=== PATIENT | male | born 1950 | race Caucasian/White ===

== ENCOUNTER 2021-09-15 20:29 | Inpatient (IN) | payer MEDICARE, BC ==
[~2021-09-15] VITALS: Ht 175.3 cm; Wt 68.0 kg
[2021-09-15] MEDS ORDERED: BUME2TAB7 PO (22:56)
[2021-09-15] MEDS ORDERED: METO-357 PO (22:56)
[2021-09-15] MEDS ORDERED: FINA5TAB11 PO (22:56)
[2021-09-15] MEDS ORDERED: DAPA10TA PO (22:56)
[2021-09-15] MEDS ORDERED: SACU1TAB7 PO (22:56)
[2021-09-15] MEDS ORDERED: TAMS-3 PO (22:56)
[2021-09-15] MEDS ORDERED: DEXAMETHASONE SOD PHOSPHATE 4 MG INJ IV ONE (23:30)
[2021-09-15] MEDS ORDERED: AZITHROMYCIN 250 MG TABLET PO ONE (23:30)
[2021-09-15] MEDS ORDERED: CEFTRIAXONE 1 G in IV DEXTROSE 5% 50 ML IV ONE (23:30)
[2021-09-15 23:45] LABS: HEMATOCRIT 45.2 % (36.7-47.1); MEAN CORPUSCULAR HEMOGLOBIN 30.8 uug (23.8-33.4); MEAN CORPUSCULAR VOLUME 89.7 fL (73.0-96.2); PLATELET COUNT (AUTO) 105 K/uL (152-348)
[2021-09-15 23:49] LABS: CARBON DIOXIDE 26 mmol/L (21-32); CHLORIDE 96 mmol/L (98-107); CREATININE 1.7 mg/dL (0.6-1.3); GLUCOSE 183 mg/dL (74-106); POTASSIUM 4.4 mmol/L (3.5-5.1); UREA NITROGEN, BLOOD 30 mg/dL (7-18)
[2021-09-16 00:03] LABS: ALANINE AMINOTRANSFERASE 26 U/L (16-63); ALKALINE PHOSPHATASE 114 U/L (50-136); ASPARTATE AMINOTRANSFERASE 36 U/L (15-37); BILIRUBIN,DIRECT 0.4 mg/dL (0.0-0.2); BILIRUBIN,TOTAL 1.3 mg/dL (0.2-1.0); TOTAL PROTEIN, SERUM 6.8 g/dL (6.4-8.2)
[2021-09-16] MEDS ORDERED: CEFTRIAXONE /D5W 50ML IVPB **ER PYXIS IV ONE (00:08)
[2021-09-16] MEDS ORDERED: DEXAMETHASONE SOD PHOSPHATE 10 MG INJ ONE (00:08)
[2021-09-16] MEDS ORDERED: AZITHROMYCIN 250 MG TABLET ONE (00:08)
[2021-09-16 00:24] LABS: *BILIRUBIN,URIN NEGATIVE (NEGATIVE); *BLOOD, URINE NEGATIVE (NEGATIVE); *CLARITY,URINE CLEAR (CLEAR); *COLOR,URINE YELLOW (YELLOW); *KETONES,URINE NEGATIVE (NEGATIVE); *UROBILINOGEN,URINE 0.2 E.U./dl (NORMAL); LEUKOCYTE ESTERASE ,URINE NEGATIVE (NEGATIVE); NITRITE, URINE NEGATIVE (NEGATIVE); PH,URINE 5.5 (5.0-8.0); UGLUCOSE NEGATIVE (NEGATIVE)
[2021-09-16 02:10] LABS: BACTERIA,URINE NONE SEEN /HPF (NONE SEEN); RBC,URINE NONE SEEN /HPF (0-3); SQUAMOUS EPITHELIAL CELL,UR FEW /HPF (NONE SEEN); WBC,URINE 0-3 /HPF (0-3)
--- NOTE | 2021-09-16 03:04 | NUR ---
Dr Banks speaking with Dr Del Cid control panel builder for [facility] who accept patient.
[2021-09-16] MEDS ORDERED: ENOXAPARIN SODIUM 40 MG/0.4 ML DISP.SYRIN SQ ONE ×2 (03:15→04:18)
[2021-09-16] MEDS ORDERED: FUROSEMIDE 40 MG/4 ML VIAL IV SCH (03:15)
[2021-09-16] MEDS ORDERED: ACETAMINOPHEN 325 MG TABLET PO PRN (03:15)
[2021-09-16] MEDS ORDERED: MAGNESIUM HYDROXIDE 30 ML LIQUID UDC PO PRN (03:15)
[2021-09-16] MEDS ORDERED: MORPHINE SULFATE 2 MG/1 ML DISP.SYRIN IV PRN (03:15)
[2021-09-16] MEDS ORDERED: hydrALAZINE HCL 20 MG/1 ML VIAL IV PRN (03:15)
[2021-09-16] MEDS ORDERED: IV NS 1000 ML 1,000 ML IV SCH (03:15)
[2021-09-16] MEDS ORDERED: ONDANSETRON 4 MG/2 ML VIAL IV PRN (03:15)
[2021-09-16] MEDS ORDERED: ALBUTEROL SULFATE 8 GM HFA.AER.AD IH PRN (03:15)
[2021-09-16 03:57] LABS: ABG BASE EXCESS -1.5 mmol/L; ABG HCO3 21.8 mmol/L; ABG PCO2 32.9 mmHg (35.0-45.0); ABG PH 7.439 (7.350-7.450); ABG PO2 61.1 mmHg (75.0-100.0); ABG SITE LEFT RADIAL; ABG TOTAL HEMOGLOBIN 14.8 G/dL (13.5-18.0); COHb 0.5 % (0.5-1.5); MetHb 0.2 % (0.0-1.5); O2Hb 90.1 % (94.0-97.0); VENT MODE Nasal Cannula
[2021-09-16] MEDS ORDERED: paxlovid PO (04:11)
[2021-09-16 05:08] LABS: FERRITIN 332 ng/mL (26-388); LACTATE DEHYDROGENASE 279 U/L (85-227)
--- NOTE | 2021-09-16 07:40 | NUR ---
Report given to Krista RAMIREZ RN.
[2021-09-16] MEDS ORDERED: IV NS 1000 ML 1,000 ML IV PRN (07:58)
--- NOTE | 2021-09-16 08:10 | NUR ---
ADMITTED FROM HOME VIA ER A 71 YO MALE WITH CC OF SOB, ADM DX COVID 19 POSITIVE. TRANSFERRED VIA WHEELCHAIR WITH O2 AT 3L NC SATURATING 95%. DENIES CHEST PAIN, NO SIGNS OF ACUTE DISTRESS. INITIAL ASSESSMENT INITIATED. ADMISSION ORDERS NOTED.
[2021-09-16] MEDS ORDERED: AZITHROMYCIN IV 500 MG in IV DEXTROSE 5% 250 ML IV SCH (09:00)
[2021-09-16] MEDS: DEXAMETHASONE SOD PHOSPHATE 4 MG INJ IV SCH (09:06)
[2021-09-16] MEDS: TAMSULOSIN HCL 0.4 MG CAP.SR.24H PO SCH ×2 (09:07→21:10)
[2021-09-16] MEDS: METOPROLOL SUCCINATE XL 50 MG TAB.SR.24H PO SCH (09:08)
[2021-09-16 09:43] VITALS: BP 111/72
[2021-09-16] MEDS ORDERED: HOME MED MISCELLANEOUS XX SCH (11:00)
[2021-09-16] MEDS: NIRMATRELVIR PO SCH ×2 (11:08→17:46)
[2021-09-16] MEDS: FLUTICASONE/VILANTEROL 1 EACH BLST.W.DEV INH SCH (11:08)
[2021-09-16] MEDS: [UNRECOGNIZED DRUG - OTHER] PO SCH ×2 (11:08→17:46)
[2021-09-16] MEDS: RITONAVIR PO SCH ×2 (11:08→17:46)
[2021-09-16] MEDS: ENOXAPARIN SODIUM 80 MG/0.8 ML DISP.SYRIN SQ SCH (11:11)
--- NOTE | 2021-09-16 12:00 | NUR ---
NO ACUTE CHANGE FROM MORNING ASSESSMENT
[2021-09-16 13:04] VITALS: BP 113/71
[2021-09-16] MEDS ORDERED: LEVO50TA8 PO (13:28)
[2021-09-16] MEDS ORDERED: DIGO125T5 PO (13:28)
[2021-09-16] MEDS ORDERED: DIGO125T PO (13:28)
[2021-09-16 16:42] VITALS: BP 118/81
[2021-09-16] MEDS: DIGOXIN 125 MCG TABLET PO SCH (17:46)
[2021-09-16] MEDS: FUROSEMIDE 40 MG/4 ML VIAL IV SCH (17:46)
--- NOTE | 2021-09-16 18:28 | NUR ---
CONTINUE WITH ASHLEY STATUS V-PACED WITH BB ULR SR ON THE 80'S. ON AND OFF DRY COUGH. AFEBRILE
[2021-09-16 20:00] VITALS: BP 116/63
[2021-09-16] MEDS: CEFTRIAXONE 1 G in IV DEXTROSE 5% 50 ML IV SCH (21:15)
[2021-09-17] MEDS: ENOXAPARIN SODIUM 80 MG/0.8 ML DISP.SYRIN SQ SCH ×3 (00:47→21:00)
[2021-09-17] MEDS: AZITHROMYCIN IV 500 MG in IV DEXTROSE 5% 250 ML IV SCH ×2 (00:47→22:32)
[2021-09-17 04:00] VITALS: BP 138/90
[2021-09-17 06:28] LABS: HEMATOCRIT 38.3 % (36.7-47.1); MEAN CORPUSCULAR HEMOGLOBIN 30.3 uug (23.8-33.4); MEAN CORPUSCULAR VOLUME 87.6 fL (73.0-96.2); PLATELET COUNT (AUTO) 77 K/uL (152-348)
[2021-09-17] MEDS: LEVOTHYROXINE SODIUM 50 MCG TABLET PO SCH (06:28)
[2021-09-17 06:46] LABS: ALANINE AMINOTRANSFERASE 24 U/L (16-63); ALKALINE PHOSPHATASE 74 U/L (50-136); ASPARTATE AMINOTRANSFERASE 48 U/L (15-37); BILIRUBIN,TOTAL 0.9 mg/dL (0.2-1.0); CARBON DIOXIDE 27 mmol/L (21-32); CHLORIDE 98 mmol/L (98-107); CREATININE 1.4 mg/dL (0.6-1.3); GLUCOSE 127 mg/dL (74-106); POTASSIUM 3.6 mmol/L (3.5-5.1); TOTAL PROTEIN, SERUM 5.4 g/dL (6.4-8.2); UREA NITROGEN, BLOOD 49 mg/dL (7-18)
[2021-09-17] MEDS: TAMSULOSIN HCL 0.4 MG CAP.SR.24H PO SCH ×2 (08:08→21:14)
[2021-09-17] MEDS: DIGOXIN 125 MCG TABLET PO SCH (08:15)
[2021-09-17] MEDS: NIRMATRELVIR PO SCH ×2 (08:15→16:36)
[2021-09-17] MEDS: [UNRECOGNIZED DRUG - OTHER] PO SCH ×2 (08:15→16:36)
[2021-09-17] MEDS: RITONAVIR PO SCH ×2 (08:15→16:36)
[2021-09-17] MEDS: METOPROLOL SUCCINATE XL 50 MG TAB.SR.24H PO SCH (08:16)
[2021-09-17] MEDS: FLUTICASONE/VILANTEROL 1 EACH BLST.W.DEV INH SCH (08:16)
[2021-09-17] MEDS: DEXAMETHASONE SOD PHOSPHATE 4 MG INJ IV SCH (08:17)
[2021-09-17] MEDS: FUROSEMIDE 40 MG/4 ML VIAL IV SCH ×2 (08:19→16:35)
[2021-09-17] MEDS: ASPIRIN 81 MG TAB.CHEW PO SCH (08:37)
--- NOTE | 2021-09-17 08:37 | NUR ---
Platelet levels at 77
[2021-09-17] MEDS ORDERED: REMDESIVIR (CHARGED) 200 MG in IV NORMAL SALINE 210 ML IV ONE (09:00)
[2021-09-17] MEDS ORDERED: SWABABLE VALVE TRANSFER SET EA MC ONE (09:23)
[2021-09-17] MEDS ORDERED: IOHEXOL 350 100 ML INFUS..BTL ONE (09:23)
[2021-09-17] MEDS ORDERED: IV NORMAL SALINE 250 ML IV ONE (09:23)
[2021-09-17 12:09] VITALS: BP 115/74
--- NOTE | 2021-09-17 14:35 | NUR ---
Troponin level reported by lab, Jose Daniel RILEY made aware
[2021-09-17 16:27] VITALS: BP 124/69
--- NOTE | 2021-09-17 18:57 | NUR ---
Patient tolerated care well throughout shift with no complaints of pain during shift. IV site patent and intact. Bed left in lowest position with call light within reach. Comfort measures provided. Will endorse information to PM nurse.
--- NOTE | 2021-09-17 19:15 | NUR ---
Received patient on bed, awake, on oxygen support at 1L via nasal cannula, not in labored breathing. Ambulatory, no complaint of pain. Safety precautions provided, call light within reach.
[2021-09-17 20:46] VITALS: BP 108/74
--- NOTE | 2021-09-17 21:15 | NUR ---
enoxaparin 70mg not given at this time latest platelet 77.
[2021-09-17] MEDS: CEFTRIAXONE 1 G in IV DEXTROSE 5% 50 ML IV SCH (21:16)
[2021-09-18 00:08] VITALS: BP 112/71
[2021-09-18 04:46] VITALS: BP 126/80
--- NOTE | 2021-09-18 05:48 | NUR ---
Slept well, on oxygen 1L via nasal cannula saturating at 96%, ambulating independently going to the bathroom. Patient for sputum culture, instruction given, according to the patient he is not having a productive cough. MRSA sent to lab as ordered. For continuity of care.
[2021-09-18] MEDS: LEVOTHYROXINE SODIUM 50 MCG TABLET PO SCH (06:23)
[2021-09-18 07:51] LABS: CARBON DIOXIDE 31 mmol/L (21-32); CHLORIDE 96 mmol/L (98-107); CREATININE 1.5 mg/dL (0.6-1.3); GLUCOSE 121 mg/dL (74-106); HEMATOCRIT 40.6 % (36.7-47.1); LACTATE DEHYDROGENASE 302 U/L (85-227); MAGNESIUM 2.2 mg/dL (1.8-2.4); MEAN CORPUSCULAR HEMOGLOBIN 30.6 uug (23.8-33.4); MEAN CORPUSCULAR VOLUME 88.6 fL (73.0-96.2); PHOSPHOROUS 4.9 mg/dL (2.5-4.9); PLATELET COUNT (AUTO) 81 K/uL (152-348); POTASSIUM 3.4 mmol/L (3.5-5.1); UREA NITROGEN, BLOOD 49 mg/dL (7-18)
--- NOTE | 2021-09-18 08:00 | NUR ---
Received pt in bed, no distress, no pain, took all routine medications. No symptoms of Covid-19 noted. Patient feels good , he said. No SOB, O2 sat 95
[2021-09-18] MEDS: TAMSULOSIN HCL 0.4 MG CAP.SR.24H PO SCH (08:33)
[2021-09-18] MEDS: FUROSEMIDE 40 MG/4 ML VIAL IV SCH (08:33)
[2021-09-18] MEDS: ASPIRIN 81 MG TAB.CHEW PO SCH (08:33)
[2021-09-18] MEDS: DEXAMETHASONE SOD PHOSPHATE 4 MG INJ IV SCH (08:34)
[2021-09-18] MEDS: METOPROLOL SUCCINATE XL 50 MG TAB.SR.24H PO SCH (08:43)
[2021-09-18] MEDS: DIGOXIN 125 MCG TABLET PO SCH (08:44)
[2021-09-18] MEDS: RITONAVIR PO SCH (08:44)
[2021-09-18] MEDS: NIRMATRELVIR PO SCH (08:44)
[2021-09-18] MEDS: [UNRECOGNIZED DRUG - OTHER] PO SCH (08:44)
[2021-09-18] MEDS: ENOXAPARIN SODIUM 80 MG/0.8 ML DISP.SYRIN SQ SCH (08:45)
[2021-09-18] MEDS ORDERED: REMDESIVIR (CHARGED) 100 MG in IV NORMAL SALINE 100 ML IV SCH (09:00)
[2021-09-18] MEDS ORDERED: POTASSIUM CHLORIDE 20 MEQ TAB.PRT.SR PO ONE (09:00)
[2021-09-18] MEDS: FLUTICASONE/VILANTEROL 1 EACH BLST.W.DEV INH SCH (09:12)
[2021-09-18 09:32] LABS: BAND % (MANUAL) 1 % (0-10); LYMPHOCYTES % (MANUAL) 6 % (20-40); MONOCYTES % (MANUAL) 2 % (2-10); NEUTROPHILS % (MANUAL) 91 % (42-75)
[2021-09-18] MEDS ORDERED: AZITHROMYCIN 250 MG TABLET PO SCH (10:00)
[2021-09-18 11:45] VITALS: BP 121/78
--- NOTE | 2021-09-18 11:57 | NUR ---
Preparing patient for discharge. No pain, no SOB, stable condition at discharge. Vitals WNL, O2 sat 95 on RA. Waiting for Covid-19 rapid test results before he goes home. meat sales and storage manager Treasure informed the patient and myself that oxygen tank will be delivered to the patient's home because he came to the hospital hypoxic on RA, so the patient said that it will be better for him to have oxygen tank at home just in case, he feels more comfortable having it at home.
== END 2021-09-18 13:15 | disposition home or self-care (01) | DRG 177 ==
LOC: ER 20:35 → TELE3 09-16 07:45 → TELE-TD3 09-16 08:35 → TELE3 09-17 10:50 → MEDSURG3 09-18 10:05
PROVIDERS: ADMIT Internal Medicine; ATTEND Internal Medicine
PROC: XW033E5 Introduction of Remdesivir Anti-infective into Peripheral Vein, Percutaneous Approach, New Technology Group 5 (ICD-10-PCS; principal; 2021-09-17)
DX: U07.1 COVID-19 (principal); I21.A1 Myocardial infarction type 2; I50.23 Acute on chronic systolic (congestive) heart failure; J96.01 Acute respiratory failure with hypoxia; N17.0 Acute kidney failure with tubular necrosis; I13.0 Hypertensive heart and chronic kidney disease with heart failure and stage 1 through stage 4 chronic kidney disease, or unspecified chronic kidney disease; E87.2 Acidosis; J90 Pleural effusion, not elsewhere classified; J98.11 Atelectasis; E11.22 Type 2 diabetes mellitus with diabetic chronic kidney disease; N18.9 Chronic kidney disease, unspecified; Z95.0 Presence of cardiac pacemaker; D69.6 Thrombocytopenia, unspecified; I25.10 Atherosclerotic heart disease of native coronary artery without angina pectoris; I25.5 Ischemic cardiomyopathy; Z87.891 Personal history of nicotine dependence; N40.0 Benign prostatic hyperplasia without lower urinary tract symptoms; I25.2 Old myocardial infarction; I27.20 Pulmonary hypertension, unspecified; J20.8 Acute bronchitis due to other specified organisms; Z95.5 Presence of coronary angioplasty implant and graft
CPT/HCPCS: 36415; 36600; 70030-TC; 71045; 71250; 71275; 83605; 83615; 83735; 84100; 84484; 85025; 85730; 86140; 87040; 87086; 93005; A4663; G0378; J0456; J0696; J1100; J1650; J1940; J3535; J7040; J7050; Q0144; Q9967